=== PATIENT | female | born 1975 | race African-American/Black ===

== ENCOUNTER 2016-07-26 20:20 | Emergency (ER) | payer MEDICAID ==
[~2016-07-26] VITALS: Ht 162.6 cm; Wt 210.0 kg
[2016-07-26 20:23] VITALS: BP 201/112; PULSE 92; RESP 16; TEMP 98.7; O2SAT 97
--- NOTE | 2016-07-26 20:30 | PD ---
Physical Exam Date Seen by Provider: July 26, 2016 Time Seen by Provider: 20:27 Narrative 40 YOBF R KNEE PAIN FOR 2 WEEKS. NO INJURY. H/O KNEE PAIN IN THE PAIN. 10/10 PAIN .WORSE WITH BENDING AND WALKING. VS NOTED AWAITING BED PLACEMENT Data Data Last Documented VS Vital Signs Date Time Temp Pulse Resp B/P Pulse Ox O2 Delivery O2 Flow Rate FiO2 07/26/16 20:23 98.7 92 16 201/112 97 Room Air [facility] Medical Record Reviewed: No Supervised Visit with KETAN: Viet Corcoran July 26, 2016 20:30
[2016-07-26 20:53] VITALS: BP 186/84
--- NOTE | 2016-07-26 21:18 | PD ---
HPI Chief Complaint: Pain: Acute or Chronic Time Seen by Provider: 20:44 Travel History International Travel<30 days: No Contact w/Intl Traveler<30days: No Traveled to known affect area: No History of Present Illness HPI Patient is a 40-year-old super morbidly obese female here with right knee pain. Patient states that she has a history of intermittent chronic right knee pain but it has worsened over the course the last several days. This is worse with bending. She does feel a grinding and a popping sensation. Worse with ambulation, though she is able to do so. She has noticed some swelling in the skin fold along the superior lateral aspect of the knee that seems more prominent than the fold on her left. She has had some cramping in the calf as well with ambulation. No history of DVT. No shortness of breath. PFSH Past Medical History Medical History: Denies Significant Hx Diminished Hearing: No ?: Not LMP: 07/02/16 Past Surgical History Surgical History: No Previous Surgery Section: Yes (x2) Social History Alcohol Use: No Tobacco Use: No (never) Substance Use: No Allergies-Medications (Allergen,Severity, Reaction): Coded Allergies: No Known Allergies (Unverified , 07/26/16) Review of Systems Except as stated in HPI: all other systems reviewed are Neg Physical Exam Narrative GENERAL: Super morbidly obese female in no acute distress SKIN: Focused skin assessment warm/dry. HEAD:Normocephalic. EYES: No scleral icterus. No injection or drainage. ENT: Mucous membranes pink and moist. CARDIOVASCULAR: Regular rate and rhythm. Hypertensive, normalized upon recheck RESPIRATORY: No accessory muscle use. GASTROINTESTINAL: Obese MUSCULOSKELETAL: No obvious deformity. Exam is significantly limited due to her obesity. The knee bony anatomy is minimally palpable, only along the medial aspect. Along the lateral aspect, superiorly patient has a large skin fold that does seem to be more prominent than the left. Patient is able to fully straighten the knee and bend to 90. There is some grinding sensation when she does this. No jake ligamentous laxity, again limited due to obesity. Distal sensation, pulses intact. I do not appreciate any swelling of the calf. NEUROLOGICAL: Awake and alert. Ambulates with minimal limp. Normal speech. PSYCHIATRIC: Appropriate mood and affect; insight and judgment normal. Data Data Last Documented VS Vital Signs Date Time Temp Pulse Resp B/P Pulse Ox O2 Delivery O2 Flow Rate FiO2 07/26/16 22:00 78 18 171/77 97 Room Air 07/26/16 20:23 98.7 Orders Knee, Complete (4vws) (07/26/16 ) Us Leg Venous Doppler (07/26/16 ) MDM Medical Decision Making Medical Screen Exam Complete: Yes Emergency Medical Condition: Yes Medical Record Reviewed: Yes Differential Diagnosis 40-year-old obese female here with complaint of right knee pain. Differential includes arthritis, internal derangement of the knee, occult fracture, DVT. Narrative Course Blood pressure normalized upon recheck. X-ray of the right knee and duplex ultrasound of the right lower extremity showed severe degenerative arthritic changes. No evidence of DVT the patient does have 2 fairly sizable soft tissue fluid collections proximal and anterior to the knee. There is no evidence of warmth, erythema on exam. My suspicion for abscess is exceedingly low. Patient was encouraged to use ice and heat and was instructed to follow-up with primary care provider for symptoms persist for potential aspiration. Diagnosis Primary Impression: Degenerative arthritis of right knee Qualified Code: M17.11 - Primary osteoarthritis of right knee Additional Impressions: Morbid obesity with BMI of 70 and over, adult Fluid in knee Qualified Code: M25.461 - Effusion of right knee Referrals: Dhaval Millard MD call for appointment Consider bariatric surgery Primary Care Physician call for appointment Additional Instructions: Tylenol, ibuprofen as needed for pain. Follow-up with primary care for annual physical, blood pressure check. Med/Other Pt SpecificInfo: No Change to Meds Disposition: 01 DISCHARGE HOME Condition: Stable Faina Cantu MD July 26, 2016 21:18
--- NOTE | 2016-07-26 21:35 | RADRPT ---
EXAM DATE/TIME: 07/26/2016 21:03 [facility] COMPARISON: No previous studies available for comparison. INDICATIONS : Right knee pain for 2 weeks with no known injury MEDICAL HISTORY : None. SURGICAL HISTORY : None. ENCOUNTER: Initial ACUITY: 2 weeks PAIN SCORE: 10/10 LOCATION: Right entire knee FINDINGS: There is severe degenerative arthritic change present with severe medial compartment joint space narr owing and tricompartmental osteophyte formation. No evidence of joint effusion or fracture. No destru ctive changes. CONCLUSION: Severe degenerative arthritic change. Manas Russell MD on July 26, 2016 at 21:27 Board Certified Radiologist. This report was verified electronically.
[2016-07-26 22:00] VITALS: BP 171/77; PULSE 78; RESP 18; O2SAT 97
--- NOTE | 2016-07-26 23:28 | RADRPT ---
EXAM DATE/TIME: 07/26/2016 21:54 [facility] COMPARISON: No previous studies available for comparison. INDICATIONS : Right leg pain and swelling. MEDICAL HISTORY : . Knee pain. SURGICAL HISTORY : section. ENCOUNTER: Initial ACUITY: 2 weeks PAIN SCORE: 5/10 LOCATION: Right leg. TECHNIQUE: Venous ultrasound of the leg was performed from the inguinal ligament to the proximal calf. Real-yokasta e, color Doppler and spectral tracing, compression and augmentation techniques were used. FINDINGS: There is normal compressibility of the deep venous system from the inguinal region to the proximal ca lf. No echogenic clot is seen in the lumen of the common femoral, femoral, popliteal, and posterior tibial veins. There is a normal response of the venous system to proximal and distal augmentation an d respiration. A focal fluid collection is seen the soft tissues anterior to the knee measuring 7.5 x 5.3 cm. There was also another pocket of fluid proximal to the knee measuring 8.5 x 5.5 cm. CONCLUSION: 1. No evidence of DVT. 2. Focal pocket of fluid in the subcutaneous soft tissues proximal to the knee measuring 8.5 x 5.5 cm . 3. Focal pocket of fluid in the subcutaneous soft tissues anterior to the knee measuring 7.5 x 5.3 cm . Rogelio Pickering MD on July 26, 2016 at 23:24 Board Certified Radiologist. This report was verified electronically.
== END 2016-07-26 22:46 | disposition home or self-care (01) ==
LOC: NEPD 20:20
DX: M17.11 Unilateral primary osteoarthritis, right knee (principal); M25.461 Effusion, right knee; R60.0 Localized edema; Z68.45 Body mass index [BMI] 70 or greater, adult; E66.01 Morbid (severe) obesity due to excess calories
CPT/HCPCS: 73564; 93971